=== PATIENT | male | born 2000 | race Caucasian/White ===

== ENCOUNTER 2018-02-17 21:46 | Emergency (ER) | payer OTHER ==
[~2018-02-17] VITALS: Ht 188 cm; Wt 96.8 kg
[2018-02-17 22:23] LABS: HEMATOCRIT 46.3 % (38.0-50.0); HEMOGLOBIN 16.5 G/DL (12.5-16.6); MCH 29.8 PG (29.0-34.0); MCHC 35.6 G/DL (30.0-36.0); MCV 83.7 FL (86-99); PLATELET COUNT 268 K/uL (156-360); RBC DIS.WIDTH-SD 36.3 % (39-53); RED BLOOD COUNT 5.53 M/uL (4.00-5.50)
[2018-02-17 22:40] LABS: ALBUMIN 4.5 g/dL (3.2-4.8); CHLORIDE 104 mEq/L (99-109); POTASSIUM 3.4 mEq/L (3.7-5.4); SODIUM 142 mEq/L (136-147)
[2018-02-17 22:42] LABS: GLUCOSE 99 mg/dL (70-99); TOTAL PROTEIN 7.5 g/dL (6.4-8.3)
[2018-02-17 22:44] LABS: TOTAL BILIRUBIN 0.5 mg/dL (0.0-1.0)
[2018-02-17 22:46] LABS: ALKALINE PHOSPHATASE 115 IU/L (3-129); CREATININE 1.1 mg/dL (0.6-1.3); GFR ESTIMATE (CALCULATED) > 59 mL/min/ (58.99-99999)
[2018-02-17 22:47] LABS: AST (GOT) 20 IU/L (2-34); UREA NITROGEN (BUN) 11 mg/dL (9-23)
[2018-02-17 22:49] LABS: ALT (GPT) 26 IU/L (3-49)
[2018-02-17 23:22] LABS: APPEARANCE CLOUDY ((CLEAR)); BILIRUBIN NEGATIVE; BLOOD NEGATIVE; COLOR YELLOW ((YELLOW)); GLUCOSE (STRIP) NEGATIVE; KETONES NEGATIVE; LEUKOCYTES NEGATIVE; NITRITE NEGATIVE; PROTEIN (STRIP) NEGATIVE; SPECIFIC GRAVITY 1.019 (1.000-1.030)
[2018-02-17 23:52] LABS: AMPHETAMINE NEGATIVE (500 ng/mL); BARBITURATES NEGATIVE (200 ng/mL); BENZODIAZEPINES NEGATIVE (150 ng/mL); BUPRENORPHINE NEGATIVE (10 ng/mL); COCAINE NEGATIVE (150 ng/mL); METHADONE NEGATIVE (200 ng/mL); METHAMPHETAMINE NEGATIVE (500 ng/mL); OPIATES (MORPHINE) NEGATIVE (100 ng/mL); OXYCODONE NEGATIVE (100 ng/mL); PHENCYCLIDINE NEGATIVE (25 ng/mL); PROPOXYPHENE NEGATIVE (300 ng/mL); THC CANNABINOIDS PRESUMPTIVE POSITIVE (50 ng/mL); TRICYCLIC ANTIDEPRESSANTS NEGATIVE (300 ng/mL)
[2018-02-18 00:06] LABS: CREATINE KINASE 83 IU/L (1-294)
[2018-02-18 00:07] LABS: BACTERIA NONE SEEN /HPF; EPITHELIAL CELLS NONE SEEN /HPF; MUCUS TRACE /LPF; UCUL ADDED? NO; WHITE BLOOD CELLS NONE SEEN /HPF (0-5)
[2018-02-18] MEDS ORDERED: FIORICET 50-301 EAC1 PO (01:06)
[2018-02-18] MEDS ORDERED: MOTRIN800 MG PO (01:06)
[2018-02-18 01:29] VITALS: BP 134/77
== END 2018-02-18 01:09 | disposition home or self-care (01) ==
LOC: EME 21:46
PROVIDERS: Physician Assistant
DX: R55 Syncope and collapse (principal); F12.99 Cannabis use, unspecified with unspecified cannabis-induced disorder; R07.89 Other chest pain; G44.209 Tension-type headache, unspecified, not intractable; R56.9 Unspecified convulsions; F17.200 Nicotine dependence, unspecified, uncomplicated; Z56.0 Unemployment, unspecified
CPT/HCPCS: 70450; 71046; 80053; 81003; 82550; 84999; 85027; 93005; 99281; 99284